=== PATIENT | male | born 1995 | race Caucasian/White ===

== ENCOUNTER 2017-11-22 05:19 | Emergency (ER) | payer BC ==
[2017-11-22 05:21] VITALS: BMI 19.8
--- NOTE | 2017-11-22 05:34 | ED PDOC ---
Arrival/HPI - General Chief Complaint: Psychiatric Evaluation Time Seen by Provider: 11/22/17 05:22 Historian: Patient, Police - History of Present Illness Narrative History of Present Illness (Text): 11/22/17 05:33 Zackery Lan is a 22 year old male, whose past medical history includes bipolar disorder, who presents to the Emergency department brought in [facility] under arrest for inappropriate behavior. As per police, patient was attempting to break in to a pharmacy tonight and was behaving bizarrely. Patient states he is non-compliant with psychiatric medication. Patient yelling at times, laughing with inappropriate gesturing. Limited HPI and ROS as patient is uncooperative. Time/Duration: Prior to Arrival Symptom Onset: Gradual Symptom Course: Unchanged Context: Street Past Medical History - Provider Review Nursing Documentation Reviewed: Yes - Infectious Disease Hx of Infectious Diseases: None - Cardiac Hx Cardiac Disorders: No - Pulmonary Hx Respiratory Disorders: No - Neurological Hx Neurological Disorder: No - HEENT Hx HEENT Disorder: No - Renal Hx Renal Disorder: No - Endocrine/Metabolic Hx Endocrine Disorders: No - Hematological/Oncological Hx Blood Disorders: No - Musculoskeletal/Rheumatological Hx Musculoskeletal Disorders: No - Gastrointestinal Hx Gastrointestinal Disorders: No - Genitourinary/Gynecological Hx Genitourinary Disorders: No - Psychiatric Hx Psychophysiologic Disorder: Yes Hx Bipolar Disorder: Yes Hx Substance Use: Yes (Marijuana) Other/Comment: OCD. ADHD - Anesthesia Hx Anesthesia: No Family/Social History - Physician Review Nursing Documentation Reviewed: Yes Family/Social History: Unknown Family HX Smoking Status: Unknown If Ever Smoked Hx Alcohol Use: Yes Frequency of alcohol use: Socially Hx Substance Use: Yes (Marijuana) Allergies/Home Meds Allergies/Adverse Reactions: Allergies No Known Allergies Allergy (Verified 11/22/17 05:21) Review of Systems - Review of Systems Systems not reviewed;Unavailable: Uncooperative Psychiatric: Other (+inappropriate behavior) Physical Exam Vital Signs Reviewed: Yes Vital Signs Temp Pulse Resp BP Pulse Ox 11/22/17 05:38 98.1 F 98 H 22 136/79 99 Temperature: Afebrile Blood Pressure: Normal Pulse: Regular Respiratory Rate: Normal Appearance: Positive for: Well-Appearing, Non-Toxic, Comfortable Pain Distress: None Mental Status: Positive for: Alert and Oriented X 3 - Systems Exam Head: Present: Atraumatic, Normocephalic Pupils: Present: PERRL Extroacular Muscles: Present: EOMI Conjunctiva: Present: Normal Mouth: Present: Moist Mucous Membranes Neck: Present: Normal Range of Motion Respiratory/Chest: Present: Clear to Auscultation, Good Air Exchange. No: Respiratory Distress, Accessory Muscle Use Cardiovascular: Present: Regular Rate and Rhythm, Normal S1, S2. No: Murmurs Abdomen: No: Tenderness, Distention, Peritoneal Signs Back: Present: Normal Inspection Upper Extremity: Present: Normal Inspection. No: Cyanosis, Edema Lower Extremity: Present: Normal Inspection. No: Edema Neurological: Present: GCS=15, CN II-XII Intact, Speech Normal Skin: Present: Warm, Dry, Normal Color. No: Rashes Psychiatric: Present: Alert, Oriented x 3, Other (Yelling, laughing at times with inappropriate gesturing) Medical Decision Making ED Course and Treatment: 11/22/17 05:33 Impression: 22 year old male brought in under arrest for inappropriate behavior. Plan: -- EKG -- Chest X-ray -- Labs, alcohol level -- Urine drug screen -- Reassess and disposition Progress Notes: 11/22/17 05:46 Pt acting aggressive, shaking the stretcher. Will sedate and restrain pt. 11/22/17 06:30 Reviewed EKG, NSR at [address]-segment elevations or depressions, no T-wave inversions, normal intervals. 11/22/17 07:00 Case endorsed to /pending medical clearance/PES evaluation/final disposition - Lab Interpretations Lab Results: 11/22/17 06:20 11/22/17 06:20 Lab Results 11/22/17 06:20: Alcohol, Quantitative < 10 11/22/17 06:20: Sodium 141, Potassium 3.8, Chloride 103, Carbon Dioxide 25, Anion Gap 17, BUN 16, Creatinine 0.9, Est GFR ( Amer) > 60, Est GFR (Non- Af Amer) > 60, Random Glucose 84, Calcium 8.9, Total Bilirubin 0.3, AST 23, ALT 24, Alkaline Phosphatase 55, Total Protein 7.0, Albumin 4.2, Globulin 2.8, Albumin/Globulin Ratio 1.5 11/22/17 06:20: WBC 7.7, RBC 4.69, Hgb 13.4 L, Hct 38.9 L, MCV 82.9, MCH 28.6, MCHC 34.4, RDW 13.5, Plt Count 219, MPV 10.6 - RAD Interpretation Radiology Orders: 11/22/17 05:42 CHEST PORTABLE [RAD] Stat - EKG Interpretation Interpreted by ED Physician: Yes Type: 12 lead EKG - Medication Orders Current Medication Orders: Discontinued Medications Ziprasidone (Geodon Inj) 20 mg IM ONCE STA Stop: 11/22/17 05:46 Last Admin: 11/22/17 05:46 Dose: 20 mg IM Administration Charges Document 11/22/17 05:46 CNR (Rec: 11/22/17 05:46 CNR [id number]) Injection Site MAR Injection Site Left Deltoid Charges for Administration # of IM Administrations 1 - Scribe Statement The provider has reviewed the documentation as recorded by the Shellibjaylon Castorena Provider Scribe Attestation: All medical record entries made by the Scribe were at my direction and personally dictated by me. I have reviewed the chart and agree that the record accurately reflects my personal performance of the history, physical exam, medical decision making, and the department course for this patient. I have also personally directed, reviewed, and agree with the discharge instructions and disposition. Disposition/Present on Arrival - Present on Arrival Any Indicators Present on Arrival: No History of DVT/PE: No History of Uncontrolled Diabetes: No Urinary Catheter: No History of Decub. Ulcer: No History Surgical Site Infection Following: None - Disposition Have Diagnosis and Disposition been Completed?: No Diagnosis: Bipolar disorder Disposition Time: 07:00 Condition: STABLE Forms: [employer] (Mauritanian)
[2017-11-22 05:38] VITALS: O2SAT 99
[2017-11-22 06:38] LABS: HEMOGLOBIN 13.4 g/dL (14.0-18.0); MEAN CELL VOLUME 82.9 fl (80.0-105.0); MEAN CORPUSCULAR HEMOGLOBIN 28.6 pg (25.0-35.0); MEAN CORPUSCULAR HGB CONC 34.4 g/dl (31.0-37.0); MEAN PLATELET VOLUME 10.6 fl (7.0-11.0); RBC 4.69 10^6/uL (3.5-6.1); RED CELL DISTRIBUTION WIDTH 13.5 % (11.5-14.5); WHITE BLOOD COUNT 7.7 10^3/ul (4.5-11.0)
[2017-11-22 06:47] LABS: ALB/GLOB RATIO 1.5 (1.1-1.8); ALBUMIN 4.2 g/dL (3.0-4.8); ALT/SGPT 24 U/L (7-56); AST/SGOT 23 U/L (17-59); BLOOD UREA NITROGEN 16 mg/dL (7-21); CALCIUM 8.9 mg/dL (8.4-10.5); GFR AFRICAN-AMERICAN > 60; GFR NON-AFRICAN AMERICAN > 60
[2017-11-22 07:48] LABS: BARBITURATES, UR NEGATIVE (NEGATIVE); BENZODIAZEPINES, UR NEGATIVE (NEGATIVE); OPIATES, UR NEGATIVE (NEGATIVE); PHENCYCLIDINE, UR NEGATIVE (NEGATIVE)
--- NOTE | 2017-11-22 08:37 | RAD ---
Date of service: 11/22/2017 HISTORY: medical clearance COMPARISON: No prior. FINDINGS: LUNGS: No active pulmonary disease. PLEURA: No significant pleural effusion identified, no pneumothorax apparent. CARDIOVASCULAR: Normal. OSSEOUS STRUCTURES: No significant abnormalities. VISUALIZED UPPER ABDOMEN: Normal. OTHER FINDINGS: None. IMPRESSION: No active disease.
[2017-11-22 09:48] VITALS: BP 132/70; RESP 19
--- NOTE | 2017-11-22 10:12 | ED PDOC ---
Physical Exam Vital Signs Reviewed: Yes Vital Signs Temp Pulse Resp BP Pulse Ox 11/22/17 10:30 98.0 F 80 19 99 11/22/17 09:47 97.9 F 89 19 132/70 99 11/22/17 05:38 98.1 F 98 H 22 136/79 99 Temperature: Afebrile Blood Pressure: Normal Pulse: Regular Respiratory Rate: Normal Appearance: Positive for: Well-Appearing, Non-Toxic, Comfortable Pain Distress: None Mental Status: Positive for: Alert and Oriented X 3 - Systems Exam Head: Present: Atraumatic, Normocephalic Pupils: Present: PERRL Extroacular Muscles: Present: EOMI Conjunctiva: Present: Normal Mouth: Present: Moist Mucous Membranes Neck: Present: Normal Range of Motion Respiratory/Chest: Present: Clear to Auscultation, Good Air Exchange. No: Respiratory Distress, Accessory Muscle Use Cardiovascular: Present: Regular Rate and Rhythm, Normal S1, S2. No: Murmurs Abdomen: No: Tenderness, Distention, Peritoneal Signs Back: Present: Normal Inspection Upper Extremity: Present: Normal Inspection. No: Cyanosis, Edema Lower Extremity: Present: Normal Inspection. No: Edema Neurological: Present: GCS=15, CN II-XII Intact, Speech Normal Skin: Present: Warm, Dry, Normal Color. No: Rashes Psychiatric: Present: Alert, Oriented x 3, Other (Yelling, laughing at times with inappropriate gesturing) Medical Decision Making ED Course and Treatment: 11/22/17 7:12 Impression: 22 year old male brought in under arrest for inappropriate behavior. Plan: -- EKG -- Chest X-ray -- Labs, alcohol level -- Urine drug screen -- Reassess and disposition Progress Notes: 11/22/17 05:46 Pt acting aggressive, shaking the stretcher. Will sedate and restrain pt. 11/22/17 06:30 Reviewed EKG, NSR at [address]-segment elevations or depressions, no T-wave inversions, normal intervals. 11/22/17 07:00 Case endorsed to me for pending medical clearance/PES evaluation/final disposition EKG: Ordered, reviewed, and independently interpreted the EKG. Rate : 68 BPM Rhythm : NSR Interpretation : No ST-segment elevations or depressions, no T-wave inversions, normal intervals. Comparison : No previous EKG for comparison. Chest x-ray reviewed by radiologist, shows: Report Date : 11/22/2017 08:35:28 Creator : Joel Ivy MD Dictator : Joel Ivy MD Pe Manager : Joel Ivy MD FINDINGS: LUNGS: No active pulmonary disease. PLEURA: No significant pleural effusion identified, no pneumothorax apparent. CARDIOVASCULAR: Normal. OSSEOUS STRUCTURES: No significant abnormalities. VISUALIZED UPPER ABDOMEN: Normal. OTHER FINDINGS: None. IMPRESSION: No active disease. 11/22/17 10:28 Case discussed with mental case management social worker. Patient medically/psychiatrically cleared for incarceration. Patient will follow up with forensic psychiatry while incarcerated. - Lab Interpretations Lab Results: 11/22/17 06:20 11/22/17 06:20 Lab Results 11/22/17 07:00: Urine Opiates Screen Negative, Urine Methadone Screen Negative, Ur Barbiturates Screen Negative, Ur Phencyclidine Scrn Negative, Ur Amphetamines Screen Negative, U Benzodiazepines Scrn Negative, U Oth Cocaine Metabols Negative, U Cannabinoids Screen Positive H 11/22/17 06:20: Alcohol, Quantitative < 10 11/22/17 06:20: Sodium 141, Potassium 3.8, Chloride 103, Carbon Dioxide 25, Anion Gap 17, BUN 16, Creatinine 0.9, Est GFR ( Amer) > 60, Est GFR (Non- Af Amer) > 60, Random Glucose 84, Calcium 8.9, Total Bilirubin 0.3, AST 23, ALT 24, Alkaline Phosphatase 55, Total Protein 7.0, Albumin 4.2, Globulin 2.8, Albumin/Globulin Ratio 1.5 11/22/17 06:20: WBC 7.7, RBC 4.69, Hgb 13.4 L, Hct 38.9 L, MCV 82.9, MCH 28.6, MCHC 34.4, RDW 13.5, Plt Count 219, MPV 10.6 - RAD Interpretation Radiology Orders: 11/22/17 05:42 CHEST PORTABLE [RAD] Stat Account Analyst: Radiologist - EKG Interpretation Interpreted by ED Physician: Yes Type: 12 lead EKG - Medication Orders Current Medication Orders: Discontinued Medications Ziprasidone (Geodon Inj) 20 mg IM ONCE STA Stop: 11/22/17 05:46 Last Admin: 11/22/17 05:46 Dose: 20 mg IM Administration Charges Document 11/22/17 05:46 CNR (Rec: 11/22/17 05:46 CNR [id number]) Injection Site MAR Injection Site Left Deltoid Charges for Administration # of IM Administrations 1 - Scribe Statement The provider has reviewed the documentation as recorded by the Scribe Brooklyn Russ All medical record entries made by the Scribe were at my direction and personally dictated by me. I have reviewed the chart and agree that the record accurately reflects my personal performance of the history, physical exam, medical decision making, and the department course for this patient. I have also personally directed, reviewed, and agree with the discharge instructions and disposition. Disposition/Present on Arrival - Present on Arrival Any Indicators Present on Arrival: No History of DVT/PE: No History of Uncontrolled Diabetes: No Urinary Catheter: No History of Decub. Ulcer: No History Surgical Site Infection Following: None - Disposition Have Diagnosis and Disposition been Completed?: Yes Diagnosis: Bipolar disorder Disposition: RELEASED IN POLICE CUSTODY Disposition Time: 09:52 Patient Plan: Other (Released with police) Condition: STABLE Discharge Instructions (ExitCare): Bipolar Disorder (DC) Additional Instructions: Mr Cabello is both medically and psychiatrically cleared for incarceration and should follow with forensic psychiatry while incarcerated. Forms: [employer] ([place]ym[place]es)
[2017-11-22 10:32] VITALS: PULSE 80; TEMP 98
--- NOTE | 2017-11-22 11:11 | CARD ---
APPROVED REPORT Date of service: 11/22/2017 EKG Measurement Heart [id number] <Conclusion> Normal sinus rhythm Normal ECG
== END 2017-11-22 10:35 ==
LOC: MERGE 05:19 → ED 05:19
DX: F31.9 Bipolar disorder, unspecified (principal); Z65.3 Problems related to other legal circumstances
CPT/HCPCS: 71045; 80053; 85027; 90791; 93005; 96372; 99285; G0480; J3486